=== PATIENT | male | born 1970 | race African-American/Black ===

== ENCOUNTER 2017-07-03 17:44 | Inpatient (IN) ==
[2017-07-03 18:13] LABS: Basophils % 0.2 % (0.0-0.8); Eosinophils % 0.1 % (0.00-10.9); Hematocrit 27.9 VOL% (42.0-52.0); Hemoglobin 8.8 GM/DL (14.0-18.0); Immature Granulocytes Absolute 0.17 #; Lymphocytes # 1.2 10*3/uL (1.4-4.0); Lymphocytes % 6.6 % (21.2-54.2); Mean Corpuscular HGB Conc 31.5 GM/DL (32-36); Mean Corpuscular Hemoglobin 22 PG (27-34); Mean Corpuscular Volume 69.8 FL (87-102); Mean Platelet Volume 10.5 FL (9.6-12.0); Monocytes # 1.4 10*3/uL (0.11-0.8); Monocytes % 7.9 % (1.7-12.7); Neutrophils % 84.2 % (38.7-73.9); Platelet Count 415 T/CUMM (130-400); Red Cell Distribution Width 15.9 % (9.3-17.3); White Blood Count 17.8 T/CUMM (4-12)
[2017-07-03 18:20] LABS: ABG Base Excess -6.5 MMOL/L (-2.5-2.5); ABG HCO3 19.2 MMOL/L (20-26); ABG PCO2 32.8 MM HG (35-48); ABG PH 7.354 (7.35-7.45); ABG TCO2 16.7 MMOL/L (23-27)
[2017-07-03 18:43] LABS: Alanine Aminotransferase 9 U/L (16-61); Albumin 1.3 G/DL (3.4-5.0); Alkaline Phosphatase 111 U/L (45-117); Aspartate Amino Transferase 24 U/L (0-37); Bilirubin,Total < 0.39 MG/DL (0.2-1.0); Blood Urea Nitrogen 73 MG/DL (7-18); Calcium 7.9 MG/DL (8.5-10.1); Glucose 287 MG/DL (74-106); Osmolality,Calculated 297.4 MOS/KG (273-304); Sodium 133 MMOL/L (136-145); Troponin I Only 0.024 NG/ML (0.00-0.045)
[2017-07-03 18:46] LABS: Potassium 6.6 MMOL/L (3.5-5.1)
[2017-07-03] MEDS ORDERED: SODIUM POLYSTYRENE SULFATE 15 GM/60 ML BOTTLE RECTAL ONE ×2 (18:53→21:22)
[2017-07-03] MEDS ORDERED: CALCIUM GLUCONATE 2,000 MG in SODIUM CHLORIDE 0.9% 100 ML IV ONE (19:00)
[2017-07-03] MEDS ORDERED: SODIUM BICARB INJ 100 MEQ in DEXTROSE 5% NACL 0.45% 1,000 ML IV SCH (19:00)
[2017-07-03] MEDS ORDERED: PROPOFOL 1,000 MG/100 ML BOTTLE IV ONE (19:20)
[2017-07-03] MEDS ORDERED: GLUCAGON 1 MG VIAL IM PRN (19:25)
[2017-07-03 19:27] LABS: Troponin I Only 0.025 NG/ML (0.00-0.045)
[2017-07-03] MEDS ORDERED: INSULIN LISPRO 100 UNIT/ML SUBCUT SCH (19:30)
[2017-07-03 19:45] LABS: Amorphous Crystals,Urine Occasional /HPF (Few); Apearance,Urine CLOUDY (Clear); Bacteria,Urine Occasional /HPF (Few); Bilirubin,Urine Negative (Negative); Blood, Urine Moderate mg/dL (Negative); Glucose,Urine (UA) 150 mg/dL (Negative); Granular Casts,Urine 4 /LPF (0-1); Hyaline Casts,Urine 7 /LPF (0-3); Ketones,Urine Negative (Negative); Mucus,Urine Occasional /LPF (Occasional); Nitrite,Urine Negative (Negative); Protein,Urine >=500 MG/DL; RBC,Urine 25 /HPF (0-4); Squamous Epithelial Cell,Urine Occasional /HPF (0-10); Urine Color Yellow (Yellow); Urine Specific Gravity 1.013 (1.001-1.035); Urine Urobilinogen < 2.0 EU/DL (0.2-1.0); WBC,Urine 12 /HPF (0-6)
[2017-07-03 19:47] LABS: Protein/Creatinine Ratio,Urine 4.9 RATIO
[2017-07-03] MEDS: PROPOFOL 1,000 MG/100 ML BOTTLE IV SCH (19:55)
[2017-07-03 20:03] LABS: Barbiturates Screen,Urine Negative (Negative); Benzodiazepines Screen,Urine Negative (Negative); Cannabinoid Screen,Urine Negative (Negative); Opiate Screen,Urine Negative (Negative); Phencyclidine Screen,Urine Negative (Negative)
[2017-07-03] MEDS: ENOXAPARIN 120 MG/0.8 ML SYRINGE SUBCUT SCH (22:04)
[2017-07-03] MEDS: CLINDAMYCIN INJ 600 MG in PREMIX 1 EACH IV SCH (22:04)
[2017-07-03] MEDS: PIPERACILLIN/TAZOBACTAM 3.375 MG in SODIUM CHLORIDE 0.9% 100 ML IV SCH (22:05)
[2017-07-03] MEDS ORDERED: SODIUM POLYSTYRENE SULFATE 15 GM/60 ML BOTTLE PO ONE (22:07)
[2017-07-03 23:25] LABS: HIV Antigen/Antibody Result Nonreactive (Nonreactive)
[2017-07-04] MEDS: PROPOFOL 1,000 MG/100 ML BOTTLE IV SCH ×4 (01:08→19:05)
[2017-07-04 02:52] LABS: ABG Base Excess -5.6 MMOL/L (-2.5-2.5); ABG HCO3 19.8 MMOL/L (20-26); ABG Oxygen Saturation 96.1 % (95-100); ABG PCO2 31.2 MM HG (35-48); ABG PH 7.383 (7.35-7.45); ABG PO2 86.8 MM HG (80-95); ABG TCO2 16.9 MMOL/L (23-27); Pt O2 Delivery Device Ventilator
[2017-07-04] MEDS: CLINDAMYCIN INJ 600 MG in PREMIX 1 EACH IV SCH ×3 (03:05→18:33)
[2017-07-04] MEDS ORDERED: FUROSEMIDE 40 MG/4 ML VIAL IV ONE (03:34)
[2017-07-04 05:27] LABS: Troponin I Only 0.018 NG/ML (0.00-0.045)
[2017-07-04 05:34] LABS: Alanine Aminotransferase < 6 U/L (16-61); Albumin 1.1 G/DL (3.4-5.0); Alkaline Phosphatase 102 U/L (45-117); Aspartate Amino Transferase 17 U/L (0-37); Blood Urea Nitrogen 79 MG/DL (7-18); Calcium 7.9 MG/DL (8.5-10.1); Glucose 360 MG/DL (74-106); Magnesium 2.7 MG/DL (1.8-2.4); Sodium 136 MMOL/L (136-145); Total Protein 5.3 G/DL (6.4-8.3)
[2017-07-04 05:39] LABS: Potassium 6.3 MMOL/L (3.5-5.1)
[2017-07-04] MEDS: PIPERACILLIN/TAZOBACTAM 3.375 MG in SODIUM CHLORIDE 0.9% 100 ML IV SCH ×3 (05:42→21:37)
[2017-07-04] MEDS ORDERED: SODIUM POLYSTYRENE SULFATE 15 GM/60 ML BOTTLE PO ONE (05:48)
[2017-07-04 06:03] LABS: Basophils % 0.1 % (0.0-0.8); Eosinophils % 0.1 % (0.00-10.9); Hematocrit 25.1 VOL% (42.0-52.0); Hemoglobin 8.3 GM/DL (14.0-18.0); Immature Granulocytes % 0.5 %; Immature Granulocytes Absolute 0.06 #; Lymphocytes # 0.9 10*3/uL (1.4-4.0); Lymphocytes % 6.6 % (21.2-54.2); Mean Corpuscular HGB Conc 33.1 GM/DL (32-36); Mean Corpuscular Hemoglobin 23 PG (27-34); Mean Platelet Volume 11.4 FL (9.6-12.0); Monocytes # 0.8 10*3/uL (0.11-0.8); Monocytes % 6.2 % (1.7-12.7); Neutrophils # 11.5 10*3/uL (1.4-7.4); Neutrophils % 86.5 % (38.7-73.9); Platelet Count 396 T/CUMM (130-400); Red Blood Count 3.69 MC/CUMM (3.8-5.5); Red Cell Distribution Width 15.6 % (9.3-17.3); White Blood Count 13.2 T/CUMM (4-12)
[2017-07-04] MEDS ORDERED: FUROSEMIDE INJ 200 MG in SODIUM CHLORIDE 0.9% 50 ML IV ONE (07:53)
[2017-07-04] MEDS ORDERED: INSULIN REGULAR DRIP 100 ML IV SCH (08:00)
[2017-07-04] MEDS ORDERED: SODIUM POLYSTYRENE SULFATE 15 GM/60 ML BOTTLE NG PRN (09:15)
[2017-07-04 09:16] LABS: Troponin I Only < 0.015 NG/ML (0.00-0.045)
[2017-07-04] MEDS: PANTOPRAZOLE 40 MG VIAL IV SCH (09:23)
[2017-07-04] MEDS: FUROSEMIDE INJ 200 MG in SODIUM CHLORIDE 0.9% 50 ML IV SCH ×2 (10:06→18:23)
[2017-07-04] MEDS: SODIUM BICARB INJ 150 MEQ in STERILE WATER INJ 1,000 ML IV SCH (11:26)
[2017-07-04] MEDS: metOLazone 5 MG TABLET PO SCH (11:31)
[2017-07-04] MEDS: ENOXAPARIN 120 MG/0.8 ML SYRINGE SUBCUT SCH (18:38)
[2017-07-04] MEDS: DEXTROSE 50% 25 GM/50 ML VIAL IV PRN ×2 (20:07→21:05)
[2017-07-05] MEDS: PROPOFOL 1,000 MG/100 ML BOTTLE IV SCH ×4 (01:20→22:44)
[2017-07-05] MEDS: FUROSEMIDE INJ 200 MG in SODIUM CHLORIDE 0.9% 50 ML IV SCH ×3 (01:28→18:26)
[2017-07-05] MEDS: SODIUM BICARB INJ 150 MEQ in STERILE WATER INJ 1,000 ML IV SCH ×3 (02:00→22:44)
[2017-07-05 03:10] LABS: ABG Base Excess -0.9 MMOL/L (-2.5-2.5); ABG HCO3 21.4 MMOL/L (20-26); ABG Oxygen Saturation 98.8 % (95-100); ABG PCO2 27.4 MM HG (35-48); ABG PO2 183.4 MM HG (80-95); ABG TCO2 22.2 MMOL/L (23-27); Allen Test Positive; Pt O2 Delivery Device Ventilator
[2017-07-05] MEDS: CLINDAMYCIN INJ 600 MG in PREMIX 1 EACH IV SCH ×3 (04:30→19:04)
[2017-07-05] MEDS: PIPERACILLIN/TAZOBACTAM 3.375 MG in SODIUM CHLORIDE 0.9% 100 ML IV SCH ×3 (05:00→20:48)
[2017-07-05 06:12] LABS: Basophils % 0.2 % (0.0-0.8); Eosinophils # 0.2 10*3/uL (0.0-0.87); Eosinophils % 1.6 % (0.00-10.9); Hematocrit 24.1 VOL% (42.0-52.0); Hemoglobin 8.1 GM/DL (14.0-18.0); Immature Granulocytes % 0.7 %; Immature Granulocytes Absolute 0.08 #; Lymphocytes # 1.2 10*3/uL (1.4-4.0); Lymphocytes % 10.8 % (21.2-54.2); Mean Corpuscular HGB Conc 33.6 GM/DL (32-36); Mean Corpuscular Hemoglobin 22 PG (27-34); Monocytes # 0.7 10*3/uL (0.11-0.8); Monocytes % 6.2 % (1.7-12.7); Neutrophils % 80.5 % (38.7-73.9); Platelet Count 430 T/CUMM (130-400); Red Blood Count 3.71 MC/CUMM (3.8-5.5); White Blood Count 11.1 T/CUMM (4-12)
[2017-07-05 07:13] LABS: Blood Urea Nitrogen 74 MG/DL (7-18); Calcium 7.3 MG/DL (8.5-10.1); Glucose 116 MG/DL (74-106); Magnesium 2.4 MG/DL (1.8-2.4); Osmolality,Calculated 297.7 MOS/KG (273-304); Potassium 4.1 MMOL/L (3.5-5.1); Sodium 138 MMOL/L (136-145); Troponin I Only < 0.015 NG/ML (0.00-0.045)
[2017-07-05 08:01] LABS: Random Urine Protein (Bench) 688 MG/DL (<11.9)
[2017-07-05 08:02] LABS: Albumin (UPER) 605.5 MG/DL; Alpha 1 (UPER) 17.2 MG/DL; Alpha 1 (UPER) Rel% 2.5 %; Alpha 2 (UPER) 21.3 MG/DL; Alpha 2 (UPER) Rel % 3.1 %; Beta (UPER) 17.9 MG/DL; Beta (UPER) Rel % 2.6 %; Gamma (UPER) 26.1 MG/DL; Gamma (UPER) Rel % 38.8 %
[2017-07-05] MEDS: PANTOPRAZOLE 40 MG VIAL IV SCH (09:18)
[2017-07-05] MEDS: metOLazone 5 MG TABLET PO SCH (09:18)
[2017-07-05] MEDS: INSULIN REGULAR 100 UNIT/ML SUBCUT SCH ×2 (12:26→18:26)
[2017-07-05] MEDS ORDERED: CHLORHEXIDINE 4% SOLN 118 ML BOTTLE TOP ONE (16:09)
[2017-07-05] MEDS ORDERED: SKIN HEALING OINT (AQUAPHOR) 50 GM TUBE TOP PRN (16:16)
[2017-07-05] MEDS: MORPHINE 2 MG/1 ML SYRINGE IV PRN (16:17)
[2017-07-05] MEDS: SODIUM HYPOCHLORITE 0.25% IRRIG 473 ML BOTTLE TOP SCH (16:52)
[2017-07-05] MEDS: ENOXAPARIN 120 MG/0.8 ML SYRINGE SUBCUT SCH (18:27)
[2017-07-06] MEDS: INSULIN REGULAR 100 UNIT/ML SUBCUT SCH ×5 (00:05→23:57)
[2017-07-06] MEDS: FUROSEMIDE INJ 200 MG in SODIUM CHLORIDE 0.9% 50 ML IV SCH ×3 (02:27→18:07)
[2017-07-06] MEDS: PROPOFOL 1,000 MG/100 ML BOTTLE IV SCH ×4 (02:28→22:02)
[2017-07-06] MEDS: CLINDAMYCIN INJ 600 MG in PREMIX 1 EACH IV SCH ×3 (04:00→18:42)
[2017-07-06 04:04] LABS: ABG Base Excess 2.4 MMOL/L (-2.5-2.5); ABG HCO3 26.6 MMOL/L (20-26); ABG PCO2 30.2 MM HG (35-48); ABG PH 7.518 (7.35-7.45); ABG TCO2 21.5 MMOL/L (23-27); Allen Test Positive; Pt O2 Delivery Device Ventilator
[2017-07-06 05:06] LABS: Basophils % 0.3 % (0.0-0.8); Eosinophils # 0.2 10*3/uL (0.0-0.87); Eosinophils % 3.1 % (0.00-10.9); Hematocrit 23.7 VOL% (42.0-52.0); Hemoglobin 8.1 GM/DL (14.0-18.0); Immature Granulocytes % 0.6 %; Immature Granulocytes Absolute 0.04 #; Lymphocytes # 1.6 10*3/uL (1.4-4.0); Lymphocytes % 22.7 % (21.2-54.2); Mean Corpuscular HGB Conc 34.2 GM/DL (32-36); Mean Corpuscular Hemoglobin 22 PG (27-34); Mean Corpuscular Volume 64.4 FL (87-102); Mean Platelet Volume 10.9 FL (9.6-12.0); Monocytes # 0.5 10*3/uL (0.11-0.8); Monocytes % 6.4 % (1.7-12.7); Neutrophils # 4.8 10*3/uL (1.4-7.4); Neutrophils % 66.9 % (38.7-73.9); Platelet Count 484 T/CUMM (130-400); Red Blood Count 3.68 MC/CUMM (3.8-5.5); Red Cell Distribution Width 14.8 % (9.3-17.3); White Blood Count 7.2 T/CUMM (4-12)
[2017-07-06] MEDS: PIPERACILLIN/TAZOBACTAM 3.375 MG in SODIUM CHLORIDE 0.9% 100 ML IV SCH ×3 (05:24→21:09)
[2017-07-06 05:37] LABS: Calcium 6.8 MG/DL (8.5-10.1); Magnesium 2.5 MG/DL (1.8-2.4); Osmolality,Calculated 306.4 MOS/KG (273-304); Potassium 4.2 MMOL/L (3.5-5.1)
[2017-07-06] MEDS ORDERED: SODIUM HYPOCHLORITE 0.25% IRRIG 473 ML BOTTLE TOP SCH (09:00)
[2017-07-06] MEDS: metOLazone 5 MG TABLET PO SCH (09:36)
[2017-07-06] MEDS: SODIUM HYPOCHLORITE 0.25% IRRIG 473 ML BOTTLE TOP SCH (09:37)
[2017-07-06] MEDS: PANTOPRAZOLE 40 MG VIAL IV SCH (09:37)
[2017-07-06] MEDS ORDERED: ZINC OXIDE PASTE 113 GM TUBE TOP PRN (10:37)
[2017-07-06] MEDS: MORPHINE 2 MG/1 ML SYRINGE IV PRN (15:05)
[2017-07-06] MEDS: ENOXAPARIN 120 MG/0.8 ML SYRINGE SUBCUT SCH (18:46)
[2017-07-07] MEDS: FUROSEMIDE INJ 200 MG in SODIUM CHLORIDE 0.9% 50 ML IV SCH ×3 (02:30→18:01)
[2017-07-07] MEDS: CLINDAMYCIN INJ 600 MG in PREMIX 1 EACH IV SCH ×3 (03:40→19:09)
[2017-07-07 03:42] LABS: ABG HCO3 28.9 MMOL/L (20-26); ABG Oxygen Saturation 98.2 % (95-100); ABG PCO2 40.4 MM HG (35-48); ABG PH 7.466 (7.35-7.45); ABG TCO2 25.9 MMOL/L (23-27)
[2017-07-07 05:17] LABS: Basophils % 0.4 % (0.0-0.8); Eosinophils # 0.2 10*3/uL (0.0-0.87); Eosinophils % 4.2 % (0.00-10.9); Hematocrit 25.9 VOL% (42.0-52.0); Hemoglobin 8.6 GM/DL (14.0-18.0); Immature Granulocytes % 0.6 %; Immature Granulocytes Absolute 0.03 #; Lymphocytes # 1.4 10*3/uL (1.4-4.0); Lymphocytes % 27.2 % (21.2-54.2); Mean Corpuscular HGB Conc 33.2 GM/DL (32-36); Mean Corpuscular Hemoglobin 22 PG (27-34); Mean Corpuscular Volume 65.4 FL (87-102); Mean Platelet Volume 10.3 FL (9.6-12.0); Monocytes # 0.5 10*3/uL (0.11-0.8); Monocytes % 8.7 % (1.7-12.7); Neutrophils # 3.1 10*3/uL (1.4-7.4); Neutrophils % 58.9 % (38.7-73.9); Platelet Count 491 T/CUMM (130-400); Red Blood Count 3.96 MC/CUMM (3.8-5.5); Red Cell Distribution Width 15.1 % (9.3-17.3); White Blood Count 5.3 T/CUMM (4-12)
[2017-07-07 05:23] LABS: PT Patient Result 10.9 SECS
[2017-07-07] MEDS: INSULIN REGULAR 100 UNIT/ML SUBCUT SCH ×3 (05:40→19:08)
[2017-07-07] MEDS: PIPERACILLIN/TAZOBACTAM 3.375 MG in SODIUM CHLORIDE 0.9% 100 ML IV SCH ×3 (05:40→20:47)
[2017-07-07 05:46] LABS: Partial Thromboplastin Time 49.6 SECS (0-40)
[2017-07-07 05:54] LABS: Calcium 7.1 MG/DL (8.5-10.1); Magnesium 2.5 MG/DL (1.8-2.4); Osmolality,Calculated 305.3 MOS/KG (273-304); Potassium 3.5 MMOL/L (3.5-5.1)
[2017-07-07] MEDS: PROPOFOL 1,000 MG/100 ML BOTTLE IV SCH (06:31)
[2017-07-07] MEDS: PANTOPRAZOLE 40 MG VIAL IV SCH (09:30)
[2017-07-07] MEDS: SODIUM HYPOCHLORITE 0.25% IRRIG 473 ML BOTTLE TOP SCH (10:32)
[2017-07-07] MEDS: metOLazone 5 MG TABLET PO SCH (10:33)
[2017-07-07] MEDS: ENOXAPARIN 120 MG/0.8 ML SYRINGE SUBCUT SCH (19:10)
[2017-07-08] MEDS: INSULIN REGULAR 100 UNIT/ML SUBCUT SCH ×8 (00:37→20:42)
[2017-07-08] MEDS: CLINDAMYCIN INJ 600 MG in PREMIX 1 EACH IV SCH ×3 (03:28→18:46)
[2017-07-08] MEDS: FUROSEMIDE INJ 200 MG in SODIUM CHLORIDE 0.9% 50 ML IV SCH ×3 (03:29→18:47)
[2017-07-08] MEDS: PIPERACILLIN/TAZOBACTAM 3.375 MG in SODIUM CHLORIDE 0.9% 100 ML IV SCH ×2 (05:00→16:14)
[2017-07-08] MEDS: metOLazone 5 MG TABLET PO SCH (09:10)
[2017-07-08] MEDS: PANTOPRAZOLE 40 MG TABLET PO SCH (09:11)
[2017-07-08] MEDS: METOPROLOL TARTRATE 25 MG TABLET PO SCH ×2 (09:11→20:42)
[2017-07-08] MEDS: INSULIN ASPART PROTAMINE/ASPART 70/30 100 UNIT/ML SUBCUT SCH ×2 (10:13→16:15)
[2017-07-08] MEDS: SODIUM HYPOCHLORITE 0.25% IRRIG 473 ML BOTTLE TOP SCH (11:45)
[2017-07-08] MEDS ORDERED: DEXTROSE 50% 25 GM/50 ML VIAL IV PRN (18:23)
[2017-07-08] MEDS ORDERED: GLUCAGON 1 MG VIAL IM PRN (18:23)
[2017-07-09] MEDS: PIPERACILLIN/TAZOBACTAM 3.375 MG in SODIUM CHLORIDE 0.9% 100 ML IV SCH ×3 (02:35→17:01)
[2017-07-09] MEDS: CLINDAMYCIN INJ 600 MG in PREMIX 1 EACH IV SCH (02:37)
[2017-07-09] MEDS: FUROSEMIDE INJ 200 MG in SODIUM CHLORIDE 0.9% 50 ML IV SCH (02:37)
[2017-07-09 04:34] LABS: Basophils % 0.4 % (0.0-0.8); Eosinophils # 0.3 10*3/uL (0.0-0.87); Eosinophils % 3.7 % (0.00-10.9); Hematocrit 27.5 VOL% (42.0-52.0); Hemoglobin 8.9 GM/DL (14.0-18.0); Immature Granulocytes % 0.9 %; Immature Granulocytes Absolute 0.07 #; Lymphocytes # 1.5 10*3/uL (1.4-4.0); Lymphocytes % 19.4 % (21.2-54.2); Mean Corpuscular HGB Conc 32.4 GM/DL (32-36); Mean Corpuscular Hemoglobin 22 PG (27-34); Mean Corpuscular Volume 67.9 FL (87-102); Mean Platelet Volume 10.9 FL (9.6-12.0); Monocytes # 0.8 10*3/uL (0.11-0.8); Monocytes % 10.4 % (1.7-12.7); Neutrophils # 5.1 10*3/uL (1.4-7.4); Neutrophils % 65.2 % (38.7-73.9); Platelet Count 447 T/CUMM (130-400); Red Blood Count 4.05 MC/CUMM (3.8-5.5); Red Cell Distribution Width 15.6 % (9.3-17.3); White Blood Count 7.9 T/CUMM (4-12)
[2017-07-09 05:03] LABS: Calcium 7.6 MG/DL (8.5-10.1); Osmolality,Calculated 296.5 MOS/KG (273-304); Potassium 3.4 MMOL/L (3.5-5.1)
[2017-07-09] MEDS ORDERED: hydrALAZINE 20 MG/1 ML VIAL IV PRN (05:13)
[2017-07-09] MEDS ORDERED: MORPHINE 2 MG/1 ML SYRINGE IV PRN (08:18)
[2017-07-09] MEDS: INSULIN REGULAR 100 UNIT/ML SUBCUT SCH ×4 (09:15→21:24)
[2017-07-09] MEDS ORDERED: NIFEdipine 10 MG CAPSULE PO PRN (09:44)
[2017-07-09] MEDS: PANTOPRAZOLE 40 MG TABLET PO SCH (09:57)
[2017-07-09] MEDS: INSULIN ASPART PROTAMINE/ASPART 70/30 100 UNIT/ML SUBCUT SCH ×2 (09:57→16:59)
[2017-07-09] MEDS: metOLazone 5 MG TABLET PO SCH (09:58)
[2017-07-09] MEDS: CLINDAMYCIN 150 MG CAPSULE PO SCH ×3 (10:05→21:22)
[2017-07-09] MEDS: METOPROLOL TARTRATE 50 MG TABLET PO SCH ×2 (10:05→21:22)
[2017-07-09] MEDS: FUROSEMIDE INJ 100 MG in SODIUM CHLORIDE 0.9% 50 ML IV SCH ×2 (10:07→16:59)
[2017-07-09] MEDS: oxyCODONE/ACETAMINOPHEN 5-325 MG TABLET PO PRN (10:17)
[2017-07-09] MEDS: amLODIPine 10 MG TABLET PO SCH (10:22)
[2017-07-09] MEDS: SODIUM HYPOCHLORITE 0.25% IRRIG 473 ML BOTTLE TOP SCH (12:01)
[2017-07-10] MEDS: PIPERACILLIN/TAZOBACTAM 3.375 MG in SODIUM CHLORIDE 0.9% 100 ML IV SCH ×3 (01:01→19:04)
[2017-07-10] MEDS: CLINDAMYCIN 150 MG CAPSULE PO SCH ×3 (07:51→21:22)
[2017-07-10] MEDS: METOPROLOL TARTRATE 50 MG TABLET PO SCH ×2 (08:31→21:22)
[2017-07-10] MEDS: amLODIPine 10 MG TABLET PO SCH (08:31)
[2017-07-10] MEDS: metOLazone 5 MG TABLET PO SCH (08:31)
[2017-07-10] MEDS: INSULIN ASPART PROTAMINE/ASPART 70/30 100 UNIT/ML SUBCUT SCH ×2 (08:31→18:21)
[2017-07-10] MEDS: PANTOPRAZOLE 40 MG TABLET PO SCH (08:31)
[2017-07-10] MEDS: INSULIN REGULAR 100 UNIT/ML SUBCUT SCH ×4 (08:32→21:23)
[2017-07-10] MEDS: SODIUM HYPOCHLORITE 0.25% IRRIG 473 ML BOTTLE TOP SCH (10:26)
[2017-07-10] MEDS: FUROSEMIDE INJ 100 MG in SODIUM CHLORIDE 0.9% 50 ML IV SCH ×2 (10:26→18:20)
[2017-07-11] MEDS: PIPERACILLIN/TAZOBACTAM 3.375 MG in SODIUM CHLORIDE 0.9% 100 ML IV SCH (03:01)
[2017-07-11 06:46] LABS: Basophils % 0.5 % (0.0-0.8); Eosinophils # 0.3 10*3/uL (0.0-0.87); Eosinophils % 3.3 % (0.00-10.9); Hematocrit 24.7 VOL% (42.0-52.0); Hemoglobin 7.8 GM/DL (14.0-18.0); Immature Granulocytes % 1.5 %; Immature Granulocytes Absolute 0.13 #; Lymphocytes # 1.8 10*3/uL (1.4-4.0); Lymphocytes % 20.5 % (21.2-54.2); Mean Corpuscular HGB Conc 31.6 GM/DL (32-36); Mean Corpuscular Hemoglobin 22 PG (27-34); Mean Corpuscular Volume 69.2 FL (87-102); Mean Platelet Volume 10.5 FL (9.6-12.0); Monocytes % 10.8 % (1.7-12.7); Neutrophils # 5.6 10*3/uL (1.4-7.4); Neutrophils % 63.4 % (38.7-73.9); Platelet Count 359 T/CUMM (130-400); Red Blood Count 3.57 MC/CUMM (3.8-5.5); Red Cell Distribution Width 16.3 % (9.3-17.3); White Blood Count 8.8 T/CUMM (4-12)
[2017-07-11] MEDS: CLINDAMYCIN 150 MG CAPSULE PO SCH ×3 (07:12→21:57)
[2017-07-11 07:16] LABS: Calcium 6.8 MG/DL (8.5-10.1); Magnesium 1.9 MG/DL (1.8-2.4); Osmolality,Calculated 301.5 MOS/KG (273-304); Potassium 3.3 MMOL/L (3.5-5.1)
[2017-07-11] MEDS: INSULIN ASPART PROTAMINE/ASPART 70/30 100 UNIT/ML SUBCUT SCH ×2 (08:39→17:14)
[2017-07-11] MEDS: FUROSEMIDE INJ 100 MG in SODIUM CHLORIDE 0.9% 50 ML IV SCH (08:39)
[2017-07-11] MEDS: amLODIPine 10 MG TABLET PO SCH (08:39)
[2017-07-11] MEDS: INSULIN REGULAR 100 UNIT/ML SUBCUT SCH ×4 (08:39→21:59)
[2017-07-11] MEDS: METOPROLOL TARTRATE 50 MG TABLET PO SCH ×2 (08:40→21:57)
[2017-07-11] MEDS: PANTOPRAZOLE 40 MG TABLET PO SCH (08:40)
[2017-07-11] MEDS: metOLazone 5 MG TABLET PO SCH (08:40)
[2017-07-11] MEDS: POTASSIUM CHLORIDE 20 MEQ TABLET PO SCH ×2 (11:06→15:53)
[2017-07-11] MEDS: AMOXICILLIN/CLAV 500 MG TABLET PO SCH ×2 (11:06→22:22)
[2017-07-11] MEDS: SODIUM HYPOCHLORITE 0.25% IRRIG 473 ML BOTTLE TOP SCH (14:35)
[2017-07-11] MEDS: FUROSEMIDE 80 MG TABLET PO SCH (15:53)
[2017-07-12 06:50] LABS: Calcium 7.6 MG/DL (8.5-10.1); Magnesium 2.3 MG/DL (1.8-2.4); Osmolality,Calculated 298.7 MOS/KG (273-304); Potassium 3.3 MMOL/L (3.5-5.1)
[2017-07-12] MEDS: CLINDAMYCIN 150 MG CAPSULE PO SCH ×3 (07:54→22:23)
[2017-07-12 08:56] LABS: Basophils % 0.3 % (0.0-0.8); Eosinophils # 0.2 10*3/uL (0.0-0.87); Hematocrit 27.4 VOL% (42.0-52.0); Hemoglobin 8.7 GM/DL (14.0-18.0); Immature Granulocytes Absolute 0.08 #; Lymphocytes # 1.6 10*3/uL (1.4-4.0); Lymphocytes % 19.7 % (21.2-54.2); Mean Corpuscular HGB Conc 31.8 GM/DL (32-36); Mean Corpuscular Hemoglobin 22 PG (27-34); Mean Corpuscular Volume 69.7 FL (87-102); Monocytes # 1.1 10*3/uL (0.11-0.8); Monocytes % 13.5 % (1.7-12.7); Neutrophils % 62.5 % (38.7-73.9); Platelet Count 359 T/CUMM (130-400); Red Blood Count 3.93 MC/CUMM (3.8-5.5); Red Cell Distribution Width 16.6 % (9.3-17.3)
[2017-07-12] MEDS: PANTOPRAZOLE 40 MG TABLET PO SCH (08:57)
[2017-07-12] MEDS: METOPROLOL TARTRATE 50 MG TABLET PO SCH ×2 (08:57→21:56)
[2017-07-12] MEDS: metOLazone 5 MG TABLET PO SCH (08:57)
[2017-07-12] MEDS: INSULIN REGULAR 100 UNIT/ML SUBCUT SCH ×4 (08:57→21:56)
[2017-07-12] MEDS: FUROSEMIDE 80 MG TABLET PO SCH ×2 (08:57→16:16)
[2017-07-12] MEDS: INSULIN ASPART PROTAMINE/ASPART 70/30 100 UNIT/ML SUBCUT SCH ×2 (08:57→16:17)
[2017-07-12] MEDS: SODIUM HYPOCHLORITE 0.25% IRRIG 473 ML BOTTLE TOP SCH (08:58)
[2017-07-12] MEDS: amLODIPine 10 MG TABLET PO SCH (08:58)
[2017-07-12 09:04] LABS: PT Patient Result 10.8 SECS; Partial Thromboplastin Time 34.5 SECS (0-40)
[2017-07-12] MEDS ORDERED: POTASSIUM CHLORIDE 20 MEQ TABLET PO ONE (09:51)
[2017-07-12] MEDS: AMOXICILLIN/CLAV 500 MG TABLET PO SCH ×2 (12:32→21:55)
[2017-07-12 19:03] LABS: Ferritin 563.5 ng/ml (26-388)
[2017-07-12] MEDS: POTASSIUM CHLORIDE 20 MEQ TABLET PO SCH (21:55)
[2017-07-12] MEDS: oxyCODONE/ACETAMINOPHEN 5-325 MG TABLET PO PRN (21:56)
[2017-07-13] MEDS ORDERED: ceFAZolin 2,000 MG in PREMIX 1 EACH IV ONE (06:00)
[2017-07-13 06:14] LABS: Basophils % 0.6 % (0.0-0.8); Eosinophils # 0.2 10*3/uL (0.0-0.87); Eosinophils % 2.8 % (0.00-10.9); Hemoglobin 8.4 GM/DL (14.0-18.0); Immature Granulocytes % 1.2 %; Immature Granulocytes Absolute 0.08 #; Lymphocytes # 1.6 10*3/uL (1.4-4.0); Mean Corpuscular Hemoglobin 22 PG (27-34); Mean Platelet Volume 10.7 FL (9.6-12.0); Monocytes % 15.1 % (1.7-12.7); Neutrophils # 3.8 10*3/uL (1.4-7.4); Neutrophils % 56.3 % (38.7-73.9); Platelet Count 379 T/CUMM (130-400); Red Blood Count 3.89 MC/CUMM (3.8-5.5); Red Cell Distribution Width 17.2 % (9.3-17.3); White Blood Count 6.8 T/CUMM (4-12)
[2017-07-13] MEDS: CLINDAMYCIN 150 MG CAPSULE PO SCH ×3 (06:35→23:10)
[2017-07-13 06:43] LABS: Calcium 7.7 MG/DL (8.5-10.1); Magnesium 2.3 MG/DL (1.8-2.4); Osmolality,Calculated 297.8 MOS/KG (273-304); Potassium 3.7 MMOL/L (3.5-5.1)
[2017-07-13] MEDS ORDERED: ACETAMINOPHEN 325 MG TABLET PO PRN (08:05)
[2017-07-13] MEDS ORDERED: ONDANSETRON 4 MG/2 ML VIAL IV PRN (08:05)
[2017-07-13] MEDS ORDERED: HYDROmorphone 2 MG/1 ML VIAL IV PRN (08:05)
[2017-07-13] MEDS ORDERED: CHLORHEXIDINE 4% SOLN 118 ML BOTTLE TOP ONE (08:15)
[2017-07-13] MEDS ORDERED: SEVOFLURANE 1 UNIT/15 MINUTE INH ONE (08:28)
[2017-07-13] MEDS ORDERED: PHENYLEPHRINE DRIP 20 MG/250 ML PREMIX IV ONE (08:28)
[2017-07-13] MEDS ORDERED: MIDAZOLAM 2 MG/2 ML VIAL ONE (08:28)
[2017-07-13] MEDS ORDERED: PROPOFOL 200 MG/20 ML VIAL IV ONE (08:28)
[2017-07-13] MEDS ORDERED: ONDANSETRON 4 MG/2 ML VIAL ONE (08:29)
[2017-07-13] MEDS ORDERED: fentaNYL 100 MCG/2 ML VIAL ONE (08:29)
[2017-07-13] MEDS ORDERED: SODIUM CHLORIDE 0.9% 250 ML IV ONE (08:29)
[2017-07-13] MEDS ORDERED: SODIUM CHLORIDE 0.45% 1,000 ML IV SCH (08:30)
[2017-07-13] MEDS: INSULIN REGULAR 100 UNIT/ML SUBCUT SCH ×4 (09:38→21:24)
[2017-07-13] MEDS: INSULIN ASPART PROTAMINE/ASPART 70/30 100 UNIT/ML SUBCUT SCH ×2 (09:38→16:43)
[2017-07-13] MEDS: amLODIPine 10 MG TABLET PO SCH (10:39)
[2017-07-13] MEDS: PANTOPRAZOLE 40 MG TABLET PO SCH (10:39)
[2017-07-13] MEDS: FUROSEMIDE 80 MG TABLET PO SCH ×2 (10:40→16:43)
[2017-07-13] MEDS: metOLazone 5 MG TABLET PO SCH (10:40)
[2017-07-13] MEDS: AMOXICILLIN/CLAV 500 MG TABLET PO SCH ×2 (10:40→20:43)
[2017-07-13] MEDS: POTASSIUM CHLORIDE 20 MEQ TABLET PO SCH ×2 (10:40→20:43)
[2017-07-13] MEDS: METOPROLOL TARTRATE 50 MG TABLET PO SCH ×2 (10:40→20:44)
[2017-07-13] MEDS: KETOROLAC 10 MG TABLET PO SCH ×2 (12:16→16:42)
[2017-07-13] MEDS: SODIUM HYPOCHLORITE 0.25% IRRIG 473 ML BOTTLE TOP SCH (12:17)
[2017-07-13] MEDS: ceFAZolin 2,000 MG in PREMIX 1 EACH IV SCH ×2 (16:42→23:11)
[2017-07-13] MEDS: oxyCODONE/ACETAMINOPHEN 5-325 MG TABLET PO PRN (16:47)
[2017-07-14] MEDS ORDERED: ENOXAPARIN 40 MG/0.4 ML SYRINGE SUBCUT SCH (02:09)
[2017-07-14] MEDS: CLINDAMYCIN 150 MG CAPSULE PO SCH ×2 (05:28→15:17)
[2017-07-14 06:19] LABS: Basophils % 0.4 % (0.0-0.8); Eosinophils # 0.2 10*3/uL (0.0-0.87); Eosinophils % 2.4 % (0.00-10.9); Hematocrit 28.4 VOL% (42.0-52.0); Hemoglobin 8.5 GM/DL (14.0-18.0); Immature Granulocytes % 0.8 %; Immature Granulocytes Absolute 0.07 #; Lymphocytes # 1.9 10*3/uL (1.4-4.0); Lymphocytes % 22.7 % (21.2-54.2); Mean Corpuscular HGB Conc 29.9 GM/DL (32-36); Mean Corpuscular Hemoglobin 22 PG (27-34); Mean Corpuscular Volume 72.4 FL (87-102); Mean Platelet Volume 10.8 FL (9.6-12.0); Monocytes % 11.7 % (1.7-12.7); Neutrophils # 5.1 10*3/uL (1.4-7.4); Platelet Count 372 T/CUMM (130-400); Red Blood Count 3.92 MC/CUMM (3.8-5.5); Red Cell Distribution Width 17.9 % (9.3-17.3); White Blood Count 8.3 T/CUMM (4-12)
[2017-07-14 06:49] LABS: Calcium 7.8 MG/DL (8.5-10.1); Magnesium 2.3 MG/DL (1.8-2.4); Osmolality,Calculated 298.7 MOS/KG (273-304); Potassium 4.6 MMOL/L (3.5-5.1)
[2017-07-14 07:43] LABS: HIV Antigen/Antibody Result Nonreactive (Nonreactive)
[2017-07-14 07:59] LABS: Hematocrit 24.6 VOL% (42.0-52.0)
[2017-07-14 08:01] LABS: Hemoglobin 7.5 GM/DL (14.0-18.0)
[2017-07-14] MEDS ORDERED: SODIUM CHLORIDE 0.9% 1,000 ML IV PRN (08:08)
[2017-07-14] MEDS: INSULIN REGULAR 100 UNIT/ML SUBCUT SCH ×4 (08:55→22:23)
[2017-07-14] MEDS: INSULIN ASPART PROTAMINE/ASPART 70/30 100 UNIT/ML SUBCUT SCH ×2 (08:55→16:43)
[2017-07-14] MEDS: amLODIPine 10 MG TABLET PO SCH (09:20)
[2017-07-14] MEDS: KETOROLAC 10 MG TABLET PO SCH ×4 (09:20→16:43)
[2017-07-14] MEDS: AMOXICILLIN/CLAV 500 MG TABLET PO SCH ×2 (09:21→22:21)
[2017-07-14] MEDS: FUROSEMIDE 80 MG TABLET PO SCH ×2 (09:21→15:18)
[2017-07-14] MEDS: POTASSIUM CHLORIDE 20 MEQ TABLET PO SCH ×2 (09:21→21:19)
[2017-07-14] MEDS: metOLazone 5 MG TABLET PO SCH (09:21)
[2017-07-14] MEDS: PANTOPRAZOLE 40 MG TABLET PO SCH (09:21)
[2017-07-14] MEDS: METOPROLOL TARTRATE 50 MG TABLET PO SCH ×2 (09:21→21:19)
[2017-07-14] MEDS: SODIUM HYPOCHLORITE 0.25% IRRIG 473 ML BOTTLE TOP SCH (12:58)
[2017-07-14] MEDS ORDERED: FUROSEMIDE 40 MG/4 ML VIAL IV SCH (17:00)
[2017-07-14] MEDS ORDERED: INSULIN ASPART PROTAMINE/ASPART 70/30 100 UNIT/ML SUBCUT SCH (17:00)
[2017-07-14] MEDS: FLUCONAZOLE 200 MG TABLET PO SCH (17:40)
[2017-07-14] MEDS: AMOXICILLIN/CLAV 875 MG TABLET PO SCH (21:19)
[2017-07-14] MEDS: FUROSEMIDE 40 MG/4 ML VIAL IV SCH (21:19)
[2017-07-15 00:58] LABS: Basophils % 0.4 % (0.0-0.8); Eosinophils # 0.3 10*3/uL (0.0-0.87); Eosinophils % 3.4 % (0.00-10.9); Hematocrit 27.6 VOL% (42.0-52.0); Hemoglobin 8.5 GM/DL (14.0-18.0); Immature Granulocytes % 0.6 %; Immature Granulocytes Absolute 0.05 #; Lymphocytes # 2.3 10*3/uL (1.4-4.0); Lymphocytes % 28.7 % (21.2-54.2); Mean Corpuscular HGB Conc 30.8 GM/DL (32-36); Mean Corpuscular Hemoglobin 23 PG (27-34); Mean Corpuscular Volume 74.8 FL (87-102); Mean Platelet Volume 10.6 FL (9.6-12.0); Monocytes % 13.1 % (1.7-12.7); Neutrophils # 4.2 10*3/uL (1.4-7.4); Neutrophils % 53.8 % (38.7-73.9); Platelet Count 318 T/CUMM (130-400); Red Blood Count 3.69 MC/CUMM (3.8-5.5); Red Cell Distribution Width 18.3 % (9.3-17.3); White Blood Count 7.9 T/CUMM (4-12)
[2017-07-15 01:24] LABS: Calcium 7.4 MG/DL (8.5-10.1); Magnesium 2.1 MG/DL (1.8-2.4); Osmolality,Calculated 302.4 MOS/KG (273-304); Potassium 4.2 MMOL/L (3.5-5.1)
[2017-07-15] MEDS ORDERED: INSULIN ASPART PROTAMINE/ASPART 70/30 100 UNIT/ML SUBCUT SCH (07:30)
[2017-07-15] MEDS: AMOXICILLIN/CLAV 875 MG TABLET PO SCH ×2 (08:15→10:13)
[2017-07-15] MEDS: INSULIN REGULAR 100 UNIT/ML SUBCUT SCH ×2 (08:15→12:20)
[2017-07-15] MEDS: KETOROLAC 10 MG TABLET PO SCH ×2 (08:15→12:20)
[2017-07-15] MEDS: AMOXICILLIN/CLAV 500 MG TABLET PO SCH ×2 (08:15→10:13)
[2017-07-15] MEDS: PANTOPRAZOLE 40 MG TABLET PO SCH ×2 (08:16→10:13)
[2017-07-15] MEDS: FLUCONAZOLE 200 MG TABLET PO SCH ×2 (08:16→10:13)
[2017-07-15] MEDS: POTASSIUM CHLORIDE 20 MEQ TABLET PO SCH ×2 (08:16→10:13)
[2017-07-15] MEDS: METOPROLOL TARTRATE 50 MG TABLET PO SCH (10:13)
[2017-07-15] MEDS: amLODIPine 10 MG TABLET PO SCH (10:13)
[2017-07-15] MEDS: FUROSEMIDE 40 MG/4 ML VIAL IV SCH (10:14)
[2017-07-15] MEDS: SODIUM HYPOCHLORITE 0.25% IRRIG 473 ML BOTTLE TOP SCH (13:00)
[2017-07-15 16:44] VITALS: BP 130/80
[2017-07-15] MEDS ORDERED: PROPOFOL 200 MG/20 ML VIAL IV ONE (18:21)
[2017-07-15] MEDS ORDERED: LIDOCAINE 2% 5 ML VIAL ONE (18:21)
== END 2017-07-15 17:33 | disposition home or self-care (01) | DRG 981 ==
LOC: N.ED 17:44 → SUATTDRO 18:21 → N.EDINP 18:21 → N.CC 19:41 → N.5E 07-09 15:28
PROVIDERS: ADMIT Hospitalist; ATTEND Internal Medicine

== ENCOUNTER 2017-07-21 06:21 | Inpatient (IN) ==
[2017-07-21] MEDS ORDERED: ALBUTEROL 2.5 MG/3 ML NEB RESP TX STA (06:53)
[2017-07-21] MEDS ORDERED: FUROSEMIDE 100 MG/10 ML VIAL IV STA (06:53)
[2017-07-21] MEDS ORDERED: NITROGLYCERIN 2% OINT 1 INCH/GM PACK TOP STA (06:54)
[2017-07-21] MEDS ORDERED: hydrALAZINE 20 MG/1 ML VIAL IV STA (06:55)
[2017-07-21] MEDS ORDERED: ALBUTEROL 2.5 MG/3 ML NEB RESP TX ONE (07:21)
[2017-07-21 07:29] LABS: Basophils % 0.4 % (0.0-0.8); Eosinophils # 0.1 10*3/uL (0.0-0.87); Eosinophils % 1.6 % (0.00-10.9); Hematocrit 30.9 VOL% (42.0-52.0); Hemoglobin 9.3 GM/DL (14.0-18.0); Immature Granulocytes % 0.8 %; Immature Granulocytes Absolute 0.07 #; Lymphocytes # 1.1 10*3/uL (1.4-4.0); Mean Corpuscular HGB Conc 30.1 GM/DL (32-36); Mean Corpuscular Hemoglobin 23 PG (27-34); Mean Platelet Volume 10.4 FL (9.6-12.0); Monocytes # 0.7 10*3/uL (0.11-0.8); Monocytes % 7.9 % (1.7-12.7); Neutrophils # 6.3 10*3/uL (1.4-7.4); Neutrophils % 76.3 % (38.7-73.9); Platelet Count 361 T/CUMM (130-400); Red Blood Count 4.12 MC/CUMM (3.8-5.5); Red Cell Distribution Width 19.6 % (9.3-17.3); White Blood Count 8.3 T/CUMM (4-12)
[2017-07-21] MEDS ORDERED: hydrALAZINE 20 MG/1 ML VIAL ONE (07:33)
[2017-07-21] MEDS ORDERED: NITROGLYCERIN 2% OINT 1 INCH/GM PACK TOP ONE (07:33)
[2017-07-21] MEDS ORDERED: FUROSEMIDE 100 MG/10 ML VIAL ONE (07:33)
[2017-07-21 07:50] LABS: Albumin 1.2 G/DL (3.4-5.0); Bilirubin,Total 0.4 MG/DL (0.2-1.0); Calcium 7.6 MG/DL (8.5-10.1); Potassium 4.3 MMOL/L (3.5-5.1); Troponin I Only 0.037 NG/ML (0.00-0.045)
[2017-07-21] MEDS ORDERED: GLUCAGON 1 MG VIAL IM PRN (09:23)
[2017-07-21] MEDS ORDERED: DEXTROSE 50% 25 GM/50 ML VIAL IV PRN (09:23)
[2017-07-21] MEDS ORDERED: methylPREDNISolone SOD SUC 125 MG/2 ML VIAL ONE (10:09)
[2017-07-21] MEDS: methylPREDNISolone SOD SUC 125 MG/2 ML VIAL IV SCH ×2 (10:12→17:52)
[2017-07-21] MEDS ORDERED: ALBUTEROL 2.5 MG/3 ML NEB RESP TX PRN (10:23)
[2017-07-21 11:19] LABS: INR 0.9; Partial Thromboplastin Time 38.3 SECS (0-40)
[2017-07-21] MEDS ORDERED: ALBUTEROL/IPRATROPIUM 3 ML NEB RESP TX SCH (13:00)
[2017-07-21] MEDS: cefTRIAXone 1,000 MG in SYRINGE 1 EACH IV SCH (13:55)
[2017-07-21] MEDS: AZITHROMYCIN INJ 500 MG in SODIUM CHLORIDE 0.9% 250 ML IV SCH (13:59)
[2017-07-21] MEDS: INSULIN REGULAR 100 UNIT/ML SUBCUT SCH ×2 (14:00→17:53)
[2017-07-21] MEDS: FUROSEMIDE 40 MG/4 ML VIAL IV SCH (17:52)
[2017-07-21] MEDS: ALBUTEROL/IPRATROPIUM 3 ML NEB RESP TX SCH (21:15)
[2017-07-21] MEDS: METOPROLOL TARTRATE 50 MG TABLET PO SCH (21:25)
[2017-07-21] MEDS: INSULIN GLARGINE 100 UNIT/ML SUBCUT SCH (21:25)
[2017-07-21] MEDS: guaiFENesin/DM ER 600-30 MG TABLET PO SCH (21:25)
[2017-07-22] MEDS: INSULIN REGULAR 100 UNIT/ML SUBCUT SCH ×5 (00:08→22:12)
[2017-07-22] MEDS: ALBUTEROL/IPRATROPIUM 3 ML NEB RESP TX SCH ×6 (00:32→19:37)
[2017-07-22] MEDS: methylPREDNISolone SOD SUC 125 MG/2 ML VIAL IV SCH ×3 (00:53→18:08)
[2017-07-22 07:23] LABS: Basophils % 0.3 % (0.0-0.8); Hemoglobin 8.2 GM/DL (14.0-18.0); Immature Granulocytes % 0.8 %; Immature Granulocytes Absolute 0.03 #; Lymphocytes # 0.8 10*3/uL (1.4-4.0); Lymphocytes % 21.4 % (21.2-54.2); Mean Corpuscular HGB Conc 31.5 GM/DL (32-36); Mean Corpuscular Hemoglobin 23 PG (27-34); Mean Platelet Volume 10.6 FL (9.6-12.0); Monocytes # 0.2 10*3/uL (0.11-0.8); Monocytes % 4.8 % (1.7-12.7); Neutrophils # 2.9 10*3/uL (1.4-7.4); Neutrophils % 72.7 % (38.7-73.9); Platelet Count 334 T/CUMM (130-400); Red Blood Count 3.56 MC/CUMM (3.8-5.5); Red Cell Distribution Width 19.5 % (9.3-17.3); White Blood Count 3.9 T/CUMM (4-12)
[2017-07-22 07:50] LABS: Giant Platelets Few; Hypochromasia 1+; Lymphocytes 16 % (20-55); Nucleated Red Blood Cells 1 (0-5); Ovalocytes Slight; Platelet Estimate Adequate; Segmented Neutrophils 78 % (50-85); Total Cells Counted 100
[2017-07-22 07:51] LABS: Alanine Aminotransferase 9 U/L (16-61); Alkaline Phosphatase 112 U/L (45-117); Aspartate Amino Transferase 17 U/L (0-37); Bilirubin,Total < 0.39 MG/DL (0.2-1.0); Blood Urea Nitrogen 47 MG/DL (7-18); Calcium 7.3 MG/DL (8.5-10.1); Glucose 185 MG/DL (74-106); Osmolality,Calculated 291.7 MOS/KG (273-304); Potassium 5.4 MMOL/L (3.5-5.1); Sodium 138 MMOL/L (136-145); Total Protein 5.3 G/DL (6.4-8.3)
[2017-07-22] MEDS ORDERED: CHLORHEXIDINE 4% SOLN 118 ML BOTTLE TOP ONE (09:00)
[2017-07-22] MEDS ORDERED: SKIN HEALING OINT (AQUAPHOR) 50 GM TUBE TOP PRN (10:13)
[2017-07-22] MEDS: PANTOPRAZOLE 40 MG TABLET PO SCH (10:17)
[2017-07-22] MEDS: METOPROLOL TARTRATE 50 MG TABLET PO SCH ×2 (10:17→22:11)
[2017-07-22] MEDS: guaiFENesin/DM ER 600-30 MG TABLET PO SCH ×2 (10:17→22:11)
[2017-07-22] MEDS: FUROSEMIDE 40 MG/4 ML VIAL IV SCH ×2 (10:18→18:07)
[2017-07-22] MEDS: cefTRIAXone 1,000 MG in SYRINGE 1 EACH IV SCH (10:18)
[2017-07-22] MEDS: amLODIPine 10 MG TABLET PO SCH (10:18)
[2017-07-22] MEDS: SODIUM HYPOCHLORITE 0.25% IRRIG 473 ML BOTTLE TOP SCH (10:20)
[2017-07-22] MEDS: BACITRACIN OINT 0.9 GM PACK TOP SCH (10:20)
[2017-07-22] MEDS: AZITHROMYCIN INJ 500 MG in SODIUM CHLORIDE 0.9% 250 ML IV SCH (10:28)
[2017-07-22] MEDS: INSULIN GLARGINE 100 UNIT/ML SUBCUT SCH (22:11)
[2017-07-23] MEDS: ALBUTEROL/IPRATROPIUM 3 ML NEB RESP TX SCH ×4 (00:01→11:19)
[2017-07-23] MEDS: methylPREDNISolone SOD SUC 125 MG/2 ML VIAL IV SCH ×2 (01:55→09:37)
[2017-07-23] MEDS ORDERED: AZITHROMYCIN 250 MG TABLET PO SCH (09:00)
[2017-07-23] MEDS: PANTOPRAZOLE 40 MG TABLET PO SCH (09:28)
[2017-07-23] MEDS: amLODIPine 10 MG TABLET PO SCH (09:28)
[2017-07-23] MEDS: METOPROLOL TARTRATE 50 MG TABLET PO SCH (09:28)
[2017-07-23] MEDS: guaiFENesin/DM ER 600-30 MG TABLET PO SCH (09:28)
[2017-07-23] MEDS: FUROSEMIDE 40 MG/4 ML VIAL IV SCH (09:29)
[2017-07-23] MEDS: cefTRIAXone 1,000 MG in SYRINGE 1 EACH IV SCH ×2 (09:32→13:30)
[2017-07-23] MEDS: INSULIN REGULAR 100 UNIT/ML SUBCUT SCH ×2 (09:40→13:37)
[2017-07-23 11:50] LABS: Procalcitonin, S 0.74 ng/mL (<=0.15)
[2017-07-23 12:17] VITALS: BP 122/84
[2017-07-23] MEDS: BACITRACIN OINT 0.9 GM PACK TOP SCH (13:41)
[2017-07-23] MEDS: SODIUM HYPOCHLORITE 0.25% IRRIG 473 ML BOTTLE TOP SCH (13:41)
[2017-07-23] MEDS ORDERED: INFLUENZA VIRUS VACCINE 0.5 ML SYRINGE IM ONE (13:54)
[2017-07-23] MEDS ORDERED: PNEUMOCOCCAL VACCINE (13 VALENT) 0.5 ML SYRINGE IM ONE (13:55)
== END 2017-07-23 14:25 | disposition home or self-care (01) | DRG 291 ==
LOC: N.ED 06:21 → N.EDINP 08:50 → N.TELEN 10:35
PROVIDERS: ADMIT Internal Medicine Infectious Disease; ATTEND Internal Medicine Infectious Disease